=== PATIENT | female | born 1985 | race Caucasian/White ===

== ENCOUNTER → 2020-07-23 | Outpatient (CLI) | payer OTHER | LOC: KOH-I 15:26 | DX: G50.1 Atypical facial pain (principal) | CPT/HCPCS: 70150 ==

== ENCOUNTER → 2021-10-07 | Outpatient (CLI) | payer OTHER | LOC: KOH-I 11:20 | DX: M79.672 Pain in left foot (principal); M79.671 Pain in right foot | CPT/HCPCS: 73130; 73630 ==